=== PATIENT | female | born 1995 | race Caucasian/White ===

== ENCOUNTER 2016-09-06 17:32 | Emergency (ER) | payer OTHER ==
[~2016-09-06 17:32] MED LIST: ALBUTEROL17 GM INH; AMOXICILLIN PO; BACTRIM DS TABL1 TA1 PO; BIRTH CONTROL PILL PO; CONCERTA54 M1 PO; FLAGYL PO; FLEXERIL10 MG PO; KETOPROFEN PO; MACROBID100 MG; NAPROSYN500 MG PO; NO MEDICATIONS; PHENERGAN DM1 ML PO; PHENERGAN25 M1; PRENACARE TABL1 EACH PO; PYRIDIUM PO; STRATTERA PO; VOLTAREN75 MG PO; YASMIN 28 TABLE1 TAB PO; ZITHROMAX PO; [UNRECOGNIZED DRUG - REMARK] PO
== END 2016-09-06 17:54 | disposition home or self-care (01) ==
LOC: SED 17:32
DX: H66.92 Otitis media, unspecified, left ear (principal); H60.92 Unspecified otitis externa, left ear; H60.332 Swimmer's ear, left ear; F17.200 Nicotine dependence, unspecified, uncomplicated
CPT/HCPCS: 99282

== ENCOUNTER 2016-12-04 20:12 | Emergency (ER) | payer OTHER ==
[~2016-12-04] VITALS: Ht 172.7 cm; Wt 72.6 kg
--- NOTE | ~2016-12-04 | CT71 ---
[facility] A Service of [facility] RADIOLOGY TEXT RESULTS PATIENT: KO AU LOCATION: SED : [birth year] UNIT #: [id number] AGE: [address]: Adriano Mckeon MD SEX: F ORDER DR: [id number] [address] [address] [id number] MR#: [id number] Acc #: [id number] NAME: KO AU. : 1995 SEX: F STUDY DATE/TIME: 12/04/2016 20:46 UNIT: SED ROOM: STUDY DESCRIPTION: CT Head Wo Contrast Attending Physician: Adriano Mckeon M.D. Ordering Physician: Adriano Mckeon M.D. Primary Care Physician: Chace Garcia M.D. MEDICAL IMAGING REPORT This report is preliminary unless electronic signature is present. EXAM CT head, 12/04/16 HISTORY Pain. Fell 3 hours ago ice skating. Complains of head pain in back of head. The CT exam was performed with one or more of the following radiation dose reduction techniques: automatic exposure control, adjustment of mA and/or kV according to patient size, and iterative reconstruction. FINDINGS CT head performed skull base to vertex without intravenous contrast. Comparison: 02/12/09. The brain stem is unremarkable. The cerebellum and cerebral hemispheres show normal harley matter-white matter differentiation. No hemorrhage. No evidence of acute cortical ischemia. The midline structures are nondisplaced and the basal ganglia are intact. The ventricles, cisterns are normal in size and contour. There is no intra or extraaxial mass effect or abnormal intracranial fluid collection. The intraorbital soft tissues are unremarkable. The visualized paranasal sinuses and mastoid air cells are clear. No fracture. Visualized scalp soft tissues show no acute abnormality. IMPRESSION 1. Normal CT head. If the patient has ongoing neurologic symptoms, consider followup imaging. [facility] A Service [facility] RADIOLOGY TEXT RESULTS PATIENT: KO AU LOCATION: SED : 93 UNIT #: [id number] AGE: [address]: Adriano Mckeon MD SEX: F ORDER DR: Dictated by... Adarsh Castillo M.D. THIS IS AN ELECTRONICALLY VERIFIED REPORT Adarsh Castillo M.D. at 12/05/2016 2:44 PM ANNY/murray TD: 12/05/2016 08:44 JOB #: [id number] MEDICAL IMAGING REPORT Page 1 of 1
== END 2016-12-04 22:01 | disposition home or self-care (01) ==
LOC: SED 20:12
DX: S09.90XA Unspecified injury of head, initial encounter (principal); F90.9 Attention-deficit hyperactivity disorder, unspecified type; F17.200 Nicotine dependence, unspecified, uncomplicated; Z98.890 Other specified postprocedural states; Z97.5 Presence of (intrauterine) contraceptive device; V00.211A Fall from ice-skates, initial encounter; Y93.21 Activity, ice skating; Y92.89 Other specified places as the place of occurrence of the external cause; Y99.8 Other external cause status
CPT/HCPCS: 70450; 99283